=== PATIENT | female | born 1990 | race Caucasian/White ===

== ENCOUNTER 2018-06-30 19:26 | Emergency (ER) | payer SELFPAY ==
[2018-06-30] MEDS ORDERED: NORMAL SALINE 1000 ML 1,000 ML IV ONE ×2 (20:58→21:37)
[2018-06-30] MEDS ORDERED: ONDANSETRON HCL INJ/PF 4 MG/2 ML SDV IV ONE (20:59)
--- NOTE | 2018-06-30 21:06 | ER Document Report ---
ED General - General Chief Complaint: Nausea/Vomiting Stated Complaint: /VOMITTING Time Seen by Provider: 06/30/18 20:58 Notes: Patient is a 27-year-old female who states she is 20 weeks . Patient states she has had continuous vomiting for the last 3 days. Patient states she does have promethazine at home for her vomiting that her [facility] gave her. States she did take that today which has not helped. Patient is denying any fever or diarrhea. Patient is denying any vaginal bleeding or discharge. Patient is admitting to minor suprapubic tenderness and "mild intermittent cramping" but no lower back pain. Past medical history: None Medications: Allergies: None - Related Data Allergies/Adverse Reactions: No Known Allergies Allergy (Unverified 06/30/18 19:45) Past Medical History - General Information source: Patient - Social History Smoking Status: Never Smoker Family History: Reviewed & Not Pertinent Review of Systems - Review of Systems Constitutional: No symptoms reported EENT: No symptoms reported Cardiovascular: No symptoms reported Respiratory: No symptoms reported Gastrointestinal: See HPI Genitourinary: See HPI Female Genitourinary: See HPI Musculoskeletal: No symptoms reported Skin: No symptoms reported Hematologic/Lymphatic: No symptoms reported Neurological/Psychological: No symptoms reported Physical Exam - Vital signs Vitals: Temp Pulse Resp BP Pulse Ox 98.6 F 105 H 18 113/72 100 06/30/18 20:16 06/30/18 20:16 06/30/18 20:16 06/30/18 20:16 06/30/18 20:16 - Notes Notes: GENERAL: Alert, interacts well. No acute distress. HEAD: Normocephalic, atraumatic. EYES: Pupils equal, round, and reactive to light. Extraocular movements intact. ENT: Oral mucosa moist, tongue midline. NECK: Full range of motion. Supple. Trachea midline. LUNGS: Clear to auscultation bilaterally, no wheezes, rales, or rhonchi. No respiratory distress. HEART: Regular rate and rhythm. No murmur ABDOMEN: Obviously gravid soft, non-tender. Non-distended. Bowel sounds present in all 4 quadrants. Minor suprapubic tenderness upon deep palpation. EXTREMITIES: Moves all 4 extremities spontaneously. No edema, normal radial and dorsalis pedis pulses bilaterally. No cyanosis. BACK: no cervical, thoracic, lumbar midline tenderness. No saddle anesthesia, normal distal neurovascular exam. No CVA tenderness bilaterally NEUROLOGICAL: Alert and oriented x3. Normal speech. cranial nerves II through XII grossly intact PSYCH: Normal affect, normal mood. SKIN: Warm, dry, normal turgor. No rashes or lesions noted. Course - Re-evaluation Re-evalutation: 06/30/18 23:03 Patient's urine does show a specific gravity of 1.032 with positive ketones. She was treated with 2 L of normal saline solution in the emergency room. Her urine ultrasounds 59 RBCs with moderate high urine blood. Patient states the suprapubic pain is now gone but continues to have very mild intermittent abdominal cramping. Patient has not vomited and states she is no longer nauseated has been able to p.o. ice chips. 07/01/18 01:11 Patient's labs do show leukocytosis of 12.2 likely due to her vomiting. Patient's hemoglobin hematocrit are at 11.9 and 34.7 respectively. Patient's sodium is 135.9 she was treated with normal saline solution in the emergency room. Her ultrasound does show signs of placenta previa. Discussed this at length with patient need to partake in pelvic rest and follow-up with [facility] within 24-48 hours. Patient voices understanding, is non-hypotensive, non- tachycardic, stable for discharge. 07/01/18 01:14 Discussed use of Unisom and vitamin B6 for continued nausea with patient at length. Patient voices understanding. Patient continues without any other episodes of vomiting in the emergency room - Vital Signs Vital signs: Temp Pulse Resp BP Pulse Ox 98.6 F 89 18 114/62 100 06/30/18 20:16 06/30/18 23:05 06/30/18 20:16 06/30/18 23:05 06/30/18 23:05 - Laboratory Result Diagrams: 06/30/18 23:30 06/30/18 23:30 Laboratory results interpreted by me: 06/30/18 06/30/18 06/30/18 21:06 23:30 23:30 WBC 12.2 H Hgb 11.9 L Hct 34.7 L Absolute Neutrophils 9.1 H Sodium 135.9 L Creatinine 0.45 L Urine Protein 100 H Urine Ketones 80 H Urine Blood MODERATE H Urine Bilirubin SMALL H Urine Urobilinogen 4.0 H Urine Ascorbic Acid 40 H Discharge - Discharge Clinical Impression: Dehydration during , Nausea/vomiting in Placenta previa Qualifiers: Trimester: second trimester Qualified Code(s): O44.02 - Complete placenta previa NOS or without hemorrhage, second trimester Condition: Stable Disposition: HOME, SELF-CARE Instructions: Intravenous (IV) Fluids ([facility]), Vomiting ([facility]) Additional Instructions: As we discussed you have been seen and treated in the emergency department for your nausea, vomiting and dehydration. Your labs show no sign of systemic bleeding at this time. Your ultrasound did show something called placenta previa. I would like you to partake in pelvic rest until you follow-up with [facility] in 24-48 hours. Pelvic rest means absolutely nothing goes into the vaginal canal. Please do not place any tampons, fingers, toys, penises into her vaginal canal until you are cleared by [facility]. Please stay well-hydrated and return to the emergency room for any other concerning symptom Referrals: LISA WAITE MD [ACTIVE STAFF] - Follow up as needed
[2018-06-30 21:24] LABS: APPEARANCE,URINE SLIGHTLY-CLOUDY; BILIRUBIN,URINE SMALL (NEGATIVE); COLOR,URINE AMBER; GLUCOSE, URINE NEGATIVE (NEGATIVE); KETONES,URINE 80 mg/dL (NEGATIVE); LEUKOCYTE ESTERASE,URINE NEGATIVE (NEGATIVE); NITRITE,URINE NEGATIVE (NEGATIVE); PROTEIN,URINE 100 mg/dL (NEGATIVE); URINE SPECIFIC GRAVITY 1.032
[2018-06-30 23:08] VITALS: BP 114/62
[2018-06-30 23:45] LABS: ABSOLUTE BASOPHILS # (AUTO) 0.1 10^3/uL (0.0-0.2); ABSOLUTE LYMPHOCYTES (AUTO) 2.2 10^3/uL (0.5-4.7); ABSOLUTE MONOCYTES (AUTO) 0.8 10^3/uL (0.1-1.4); ABSOLUTE NEUT (AUTO) 9.1 10^3/uL (1.7-8.2); BASOPHILS % (AUTO) 0.5 % (0-2); EOSINOPHILS % (AUTO) 0.4 % (0-6); HEMATOCRIT 34.7 % (36.0-47.0); HEMOGLOBIN 11.9 g/dL (12.0-15.5); LYMPHOCYTES % (AUTO) 18.2 % (13-45); MEAN CORPUSCULAR HEMOGLOBIN 29.9 pg (27.0-33.4); MEAN CORPUSCULAR HGB CONC 34.4 g/dL (32.0-36.0); MEAN CORPUSCULAR VOLUME 87 fl (80-97); MONOCYTES % (AUTO) 6.4 % (3-13); PLATELET COUNT 252 10^3/uL (150-450); RED BLOOD COUNT 3.99 10^6/uL (3.72-5.28); RED CELL DISTRIBUTION WIDTH 13.8 % (11.5-14.0); SEGMENTED NEUTROPHILS % (AUTO) 74.5 % (42-78); TOTAL CELLS COUNTED % (AUTO) 100 %; WHITE BLOOD COUNT 12.2 10^3/uL (4.0-10.5)
[2018-06-30 23:52] LABS: ANION GAP 6 (5-19); BLOOD UREA NITROGEN 9 mg/dL (7-20); CALCIUM 8.5 mg/dL (8.4-10.2); CARBON DIOXIDE 24 mmol/L (22-30); CHLORIDE 106 mmol/L (98-107); GLUCOSE 81 mg/dL (75-110); POTASSIUM 4.2 mmol/L (3.6-5.0); SODIUM 135.9 mmol/L (137-145)
--- NOTE | 2018-07-01 00:54 | RADIOLOGY REPORT (SQ) ---
EXAM DESCRIPTION: US LIMITED COMPLETED DATE/TME: 06/30/2018 23:27 CLINICAL HISTORY: 27 years Female, pregnany, bleeding Clinical GA 19w6d Comparison: None. TECHNIQUE/LIMITATION: Targeted OB sonogram for requested parameters only. FINDINGS: EGA is 19w6d with ANIL of 11/18/18 EFW is 321g Cardiac activity: 157-bpm. NORRIS: 5.5-cm Placenta: Anterior. Placenta previa (assymetric) with posterior edge of the placenta 1.6 cm posterior to the internal cervical os. No evidence of abruption. Cervical length: 4.2-cm. Closed appearance. IMPRESSION: 1. Placenta previa. If asymptomatic, follow-up recommended at 32 weeks. Else, earlier follow-up if symptomatic. 2. Targeted OB sonogram for requested parameters.
== END 2018-07-01 00:45 | disposition home or self-care (01) ==
LOC: ER 19:26
DX: O21.9 Vomiting of pregnancy, unspecified (principal); O44.02 Complete placenta previa NOS or without hemorrhage, second trimester; E86.0 Dehydration; Z3A.20 20 weeks gestation of pregnancy
CPT/HCPCS: 99283; 96361; 96374; 36415; 85025; 80048; 81001; 76815; J2405; J7030

== ENCOUNTER 2018-11-17 05:54 | Inpatient (IN) | payer MEDICAID ==
[2018-11-16 10:51] LABS: HEMATOCRIT 27.3 % (36.0-47.0); HEMOGLOBIN 9.1 g/dL (12.0-15.5); MEAN CORPUSCULAR HEMOGLOBIN 26.1 pg (27.0-33.4); MEAN CORPUSCULAR HGB CONC 33.5 g/dL (32.0-36.0); MEAN CORPUSCULAR VOLUME 78 fl (80-97); PLATELET COUNT 247 10^3/uL (150-450); RED CELL DISTRIBUTION WIDTH 15.8 % (11.5-14.0); WHITE BLOOD COUNT 9.6 10^3/uL (4.0-10.5)
[2018-11-16 10:56] LABS: APPEARANCE,URINE CLOUDY; BILIRUBIN,URINE NEGATIVE (NEGATIVE); COLOR,URINE YELLOW; GLUCOSE, URINE NEGATIVE (NEGATIVE); KETONES,URINE NEGATIVE (NEGATIVE); LEUKOCYTE ESTERASE,URINE SMALL (NEGATIVE); NITRITE,URINE NEGATIVE (NEGATIVE); PROTEIN,URINE NEGATIVE (NEGATIVE); URINE SPECIFIC GRAVITY 1.006; UROBILINOGEN,URINE NEGATIVE mg/dL (<2.0)
[2018-11-16 11:14] LABS: URINE AMPHETAMINES SCREEN NEGATIVE; URINE BARBITURATES SCREEN NEGATIVE; URINE BENZODIAZEPINES SCREEN NEGATIVE; URINE COCAINE SCREEN NEGATIVE; URINE MARIJUANA (THC) SCREEN NEGATIVE; URINE METHADONE SCREEN NEGATIVE; URINE PHENCYCLIDINE SCREEN NEGATIVE
[2018-11-16 11:37] LABS: ABSOLUTE LYMPHOCYTES# (MANUAL) 1.8 10^3/uL (0.5-4.7); ABSOLUTE MONOCYTES # (MANUAL) 0.1 10^3/uL (0.1-1.4); ABSOLUTE NEUTROPHILS# (MANUAL) 7.6 10^3/uL (1.7-8.2); BAND NEUTROPHILS % (MANUAL) 3 % (3-5); BASOPHILS % (MANUAL) 0 % (0-2); EOSINOPHILS % (MANUAL) 1 % (0-6); LYMPHOCYTES % (MANUAL) 19 % (13-45); MONOCYTES % (MANUAL) 1 % (3-13); SEGMENTED NEUTROPHILS % (MAN) 76 % (42-78); TOTAL CELLS COUNTED 100
[2018-11-16 11:39] LABS: ANISOCYTOSIS SLIGHT
[2018-11-16 11:40] LABS: HYPOCHROMASIA 1+; PLATELET COMMENT ADEQUATE
[~2018-11-17 05:54] MED LIST: CEFAZOLIN 1 GM/D5W RTU 1 GM/50 ML RTUPB IV PRN; LACTATED RINGERS 1000 ML IV PRN; LIDOCAINE 0.5% INJ-PF (5 MG/ML) 50 ML SDV SUBCUT PRN; RINGERS SOLUTION,LACTATED 1,500 ML IV PRN
[2018-11-17] MEDS ORDERED: PROPOFOL INJ 200 MG/20 ML VIAL IV ONE (08:28)
[2018-11-17] MEDS ORDERED: CITRIC ACID/SODIUM CITRATE ORAL SOLN 15 ML UDCUP ONE (08:28)
[2018-11-17] MEDS ORDERED: MIDAZOLAM 2 MG/2 ML INJ ONE (08:29)
[2018-11-17] MEDS ORDERED: OXYTOCIN/NORMAL SALINE 20 UNIT/1,000 ML RTUINJ ONE ×2 (08:29→11:09)
[2018-11-17] MEDS ORDERED: EPHEDRINE SULFATE INJ 50 MG/1 ML AMPULE ONE (08:29)
[2018-11-17] MEDS ORDERED: FENTANYL CITRATE INJ/PF 100 MCG/2 ML AMPUL ONE ×2 (08:29→11:08)
[2018-11-17] MEDS ORDERED: PROMETHAZINE HCL INJ 25 MG/1 ML VIAL IV PRN ×3 (09:19→09:28)
[2018-11-17] MEDS ORDERED: DIPHENHYDRAMINE HCL 50 MG/ML VIAL IV PRN (09:19)
[2018-11-17] MEDS ORDERED: MEPERIDINE HCL/PF INJ 25 MG/1 ML DISP.SYRIN IV PRN (09:19)
[2018-11-17] MEDS ORDERED: FENTANYL CITRATE INJ/PF 100 MCG/2 ML AMPUL IV PRN ×2 (09:19)
[2018-11-17] MEDS ORDERED: MORPHINE SULFATE 10 MG/ML INJ IV PRN ×2 (09:19→09:28)
[2018-11-17] MEDS ORDERED: MEASLES,MUMPS&RUBELLA VACC/PF 0.5 ML VIAL SUBCUT PRN (09:28)
[2018-11-17] MEDS ORDERED: OXYTOCIN/NORMAL SALINE 20 UNIT/1,000 ML RTUINJ IV PRN (09:28)
[2018-11-17] MEDS ORDERED: DIPH/PERTUSS(ACELL)/TETANUS VAC/PF 0.5 ML SYR (>=10YO) IM PRN (09:28)
[2018-11-17] MEDS ORDERED: OXYCODONE-ACETAMINOPHEN 5-325 MG TABLET PO PRN (09:28)
[2018-11-17] MEDS ORDERED: RINGERS SOLUTION,LACTATED 1,000 ML IV PRN (09:28)
[2018-11-17] MEDS ORDERED: ACETAMINOPHEN 1,000 MG/100 ML RTUPB IV PRN (09:28)
[2018-11-17] MEDS ORDERED: ACETAMINOPHEN 325 MG TABLET PO PRN (09:28)
[2018-11-17] MEDS: FENTANYL CITRATE INJ/PF 100 MCG/2 ML AMPUL IV PRN ×2 (11:08→11:20)
--- NOTE | 2018-11-17 11:30 | OPERATIVE REPORT E ---
Operative Report NAME: ALONSO VILA : 1990 AGE: 28Y DATE OF SURGERY: 11/17/2018 ROOM: 227 PREOPERATIVE DIAGNOSES: 1. INTRAUTERINE (IUP) AT 39 WEEKS AND 1 DAY. 2. PREVIOUS SECTION, DESIRES REPEAT. POSTOPERATIVE DIAGNOSES: 1. INTRAUTERINE (IUP) AT 39 WEEKS AND 1 DAY. 2. PREVIOUS SECTION, DESIRES REPEAT. SURGEON: DEL NAPIER M.D. PULMONOLOGIST INTENSIVIST: Jenniefr Christianson, [employer] [employer] pharmacy intake technician. ANESTHESIOLOGIST: Diaan Kline M.D. ANESTHESIA: Spinal. FINDINGS: Male , cephalic presentation, with Apgars of 9 and 9. ESTIMATED BLOOD LOSS: 750 mL. COMPLICATIONS: None. PATHOLOGY: None. PROCEDURE: A repeat low transverse hysterotomy section. PROCEDURE IN DETAIL: The patient was taken to the operating room, prepared and draped in a normal sterile fashion in the supine position with a leftward tilt. A transverse skin incision was made with a scalpel following the patient's previous scar. This was carried through to the underlying layer of fascia with the same scalpel. The fascia was incised in the midline and extended laterally with Mayos. The fascia was dissected sharply from the rectus muscle using the Bovie and the rectus muscle was divided sharply, again using the Bovie. The peritoneal cavity was entered bluntly with good visualization of the bladder and the uterus. The bladder blade was inserted. The rectus muscles were slightly cut to aid with delivery. The hysterotomy was then nicked with a scalpel and extended laterally with surgeon finger fracture. The infant was then delivered atraumatically. The nose and mouth were suctioned with a suction bulb and the cord was clamped and cut. The was handed off to waiting laboratory scientist. Cord blood was collected. The placenta was removed manually. The uterus was exteriorized and cleared of clots and debris. Hysterotomy was closed with 0 Monocryl in a running locked fashion. A second layer of the same suture was used to imbricate to ensure hemostasis. The uterus was returned to the abdomen. The peritoneal cavity was cleared of clots and debris. The rectus muscle and peritoneum were reapproximated with a mattress suture of 2-0 chromic. The fascia was closed with 0 Vicryl. The subcutaneous layer was closed with plain catgut and the skin was closed with 4-0 Vicryl. The patient tolerated the procedure well. Sponge, lap, and needle counts were correct x2, and the patient was taken to recovery in stable condition. DICTATING PHYSICIAN: DEL NAPIER M.D. [id number] PHY#: [id number] ID: [id number] JOB#: [id number] ACCT: [id number] cc:DEL NAPIER M.D. >
[2018-11-17] MEDS: PRENATAL VITAMIN W DHA CAPSULE PO SCH (12:35)
[2018-11-17] MEDS: DOCUSATE SODIUM 100 MG CAPSULE PO SCH ×2 (12:35→17:52)
[2018-11-17] MEDS: OXYCODONE-ACETAMINOPHEN 5-325 MG TABLET PO PRN (16:06)
[2018-11-17] MEDS: KETOROLAC TROMETHAMINE INJ/PF 30 MG/1 ML SDV IV SCH (17:52)
[2018-11-17] MEDS ORDERED: PHENYLEPHRINE HCL INJ/PF 10 MG/1 ML SDV ONE (21:18)
[2018-11-17] MEDS ORDERED: KETOROLAC TROMETHAMINE 60 MG/2 ML SDV ONE (21:18)
[2018-11-18] MEDS: OXYCODONE-ACETAMINOPHEN 5-325 MG TABLET PO PRN (00:25)
[2018-11-18] MEDS: KETOROLAC TROMETHAMINE INJ/PF 30 MG/1 ML SDV IV SCH ×2 (03:24→09:24)
[2018-11-18 07:40] LABS: HEMATOCRIT 25.1 % (36.0-47.0); HEMOGLOBIN 8.2 g/dL (12.0-15.5); MEAN CORPUSCULAR HEMOGLOBIN 25.1 pg (27.0-33.4); MEAN CORPUSCULAR HGB CONC 32.7 g/dL (32.0-36.0); MEAN CORPUSCULAR VOLUME 77 fl (80-97); PLATELET COUNT 230 10^3/uL (150-450); RED BLOOD COUNT 3.26 10^6/uL (3.72-5.28); RED CELL DISTRIBUTION WIDTH 15.7 % (11.5-14.0); WHITE BLOOD COUNT 12.7 10^3/uL (4.0-10.5)
[2018-11-18] MEDS ORDERED: MAG HYDROX/AL HYDROX/SIMETH SUSP 30 ML UDCUP ONE (09:14)
[2018-11-18] MEDS: SIMETHICONE 80 MG TAB.CHEW PO PRN ×3 (09:23→23:22)
[2018-11-18] MEDS: DOCUSATE SODIUM 100 MG CAPSULE PO SCH ×2 (09:23→17:43)
[2018-11-18] MEDS: PRENATAL VITAMIN W DHA CAPSULE PO SCH (09:23)
[2018-11-18] MEDS ORDERED: MAG HYDROX/AL HYDROX/SIMETH SUSP 30 ML UDCUP PO PRN (09:35)
[2018-11-18] MEDS ORDERED: FAMOTIDINE 20 MG TABLET ONE (10:53)
[2018-11-18] MEDS ORDERED: IBUPROFEN 800 MG TABLET ONE (10:56)
[2018-11-18] MEDS: FAMOTIDINE 20 MG TABLET PO SCH ×2 (10:57→23:22)
[2018-11-18] MEDS: IBUPROFEN 800 MG TABLET PO SCH ×3 (10:59→23:21)
--- NOTE | 2018-11-18 13:50 | PDOC PROGRESS REPORT ---
Subjective-OB Progress Note for:: 11/18/18 Subjective: Pt doing well, bonding with baby. She denies heavy bleeding, reports regular diet without flatus at this point. No difficulty voiding. Physical Exam (OB) Vital Signs: Temp Pulse Resp BP Pulse Ox 98.5 F 101 H 16 105/61 99 11/18/18 11:17 11/18/18 11:17 11/18/18 11:17 11/18/18 11:17 11/18/18 11:17 Intake & Output 11/17/18 11/18/18 11/19/18 06:59 06:59 06:59 Intake Total 2425 500 Output Total 3754 Balance -1329 500 Weight 92.08 kg - PIH/Pre-Eclampsia DTR's: 2 + Clonus: Negative Headache: Absent Epigastric Pain: No Visual Changes: No - Dressing Removed: No - opsite dressing in place Incision: Dressing Closure Type: optsite - Lochia Lochia Amount: Scant < 10 ml Lochia Color: Rubra/Red - Abdomen Description: Tender, Soft Hernia Present: No Fundal Description: Firm, Midline Fundal Height: u/u - u/2 Objective-Diagnostic Laboratory: 11/18/18 07:18 11/18/18 07:18 WBC 12.7 H RBC 3.26 L Hgb 8.2 L Hct 25.1 L MCV 77 L MCH 25.1 L MCHC 32.7 RDW 15.7 H Plt Count 230 Assessment and Plan(PN) - Assessment and Plan (1) Status post repeat low transverse section Is this a current diagnosis for this admission?: Yes - Time Spent with Patient Time with patient: Less than 15 minutes Medications reviewed and adjusted accordingly: Yes - Disposition Anticipated Discharge: Home Within: within 24 hours
[2018-11-19] MEDS: IBUPROFEN 800 MG TABLET PO SCH ×2 (06:36→12:19)
[2018-11-19] MEDS: SIMETHICONE 80 MG TAB.CHEW PO PRN (06:37)
[2018-11-19] MEDS: FAMOTIDINE 20 MG TABLET PO SCH (09:17)
[2018-11-19] MEDS: PRENATAL VITAMIN W DHA CAPSULE PO SCH (09:17)
[2018-11-19] MEDS: DOCUSATE SODIUM 100 MG CAPSULE PO SCH (09:17)
--- NOTE | 2018-11-19 09:23 | PDOC DISCHARGE SUMMARY ---
Final Diagnosis Discharge Date: 11/19/18 - Final Diagnosis (1) Status post repeat low transverse section Is this a current diagnosis for this admission?: Yes Discharge Data - Discharge Medication Home Medications: Doxylamine Succinate/Vit B6 [Diclegis Dr 10-10 mg Tablet] 1 each PO PRN PRN 11/16/18 Metformin HCl [Metformin HCl ER] 500 mg PO BID 11/16/18 No122/Iron/Folic Acid [ Multi Tablet] 1 each PO DAILY 11/16/18 Ranitidine HCl [Zantac 75 mg Tablet] 75 mg PO DAILY 11/16/18 Reason(s) for Admission: Ceasarean Section-Repeat Procedures: None Intrapartum Procedure(s): : Low Cervical, Transverse - Diagnosis Test Laboratory: Temp Pulse Resp BP Pulse Ox 97.9 F 92 18 107/62 97 11/19/18 03:58 11/19/18 03:58 11/19/18 03:58 11/19/18 03:58 11/19/18 03:58 11/16/18 11/16/18 11/18/18 10:10 10:13 07:18 RBC 3.50 L 3.26 L Hgb 9.1 L 8.2 L Hct 27.3 L 25.1 L Urine Opiates Screen NEGATIVE - Discharge information/Instructions Discharge Activity: Balance Activity w/Rest, No Lifting Over 10 Pounds, No Lifting/Push/Pulling, Pelvic Rest Discharge Diet: Regular Disposition: HOME, SELF-CARE Follow up with: [facility] in: 1, Weeks
[2018-11-19 11:47] VITALS: BP 110/70
[2018-11-22] MEDS ORDERED: IBUPROFEN 800 MG TABLET PO SCH (18:00)
== END 2018-11-19 13:50 | disposition home or self-care (01) | DRG 788 ==
LOC: 2S 05:54
PROVIDERS: ADMIT Obstetrics & Gynecology; ATTEND Obstetrics & Gynecology
PROC: 10D00Z1 Extraction of Products of Conception, Low, Open Approach (ICD-10-PCS; principal; 2018-11-17 08:30)
PROC: 3E0234Z Introduction of Serum, Toxoid and Vaccine into Muscle, Percutaneous Approach (ICD-10-PCS; 2018-11-19)
DX: O34.211 Maternal care for low transverse scar from previous cesarean delivery (principal); N85.8 Other specified noninflammatory disorders of uterus; Z3A.39 39 weeks gestation of pregnancy; O24.425 Gestational diabetes mellitus in childbirth, controlled by oral hypoglycemic drugs; O99.02 Anemia complicating childbirth; D64.9 Anemia, unspecified; Z37.0 Single live birth; Z23 Encounter for immunization
CPT/HCPCS: 1961; 36415; 80307; 81001; 82962; 85025; 85027; 86850; 86900; 86901; 90715; 94799; J1885; J2250; J2270; J2370; J2590; J2704; J3010; J3490; J7120

== ENCOUNTER 2020-04-01 00:32 | Emergency (ER) | payer OTHER, MEDICAID ==
[2020-04-01 01:01] VITALS: BP 127/64
[2020-04-01] MEDS ORDERED: KETOROLAC TROMETHAMINE 60 MG/2 ML SDV IM ONE (02:25)
[2020-04-01] MEDS ORDERED: AMOXICILLIN TR/POT CLAVULANATE 875-125 MG TAB PO ONE (02:27)
--- NOTE | 2020-04-01 02:28 | ER Document Report ---
ED ENT - General Chief Complaint: Ear Pain Stated Complaint: SEVERE EAR PAIN Primary Care Provider: CIARA BRAGA APRN [NO LOCAL MD] - Follow up as needed TRAVEL OUTSIDE OF THE [place] IN LAST 30 DAYS: No - HPI Notes: Patient is a 29-year-old female who presents with left ear pain. Patient states symptoms began today and have been worsening. She denies any fevers or chills. No sore throat. No nasal congestion. No neck pain or pain behind the ear. She has tried rtyg-rce-haxaicu eardrops without relief. Patient denies swimming. She states that her sister did give her a haircut and wash her hair and she is unsure if maybe that could have gotten some water in her ear. No chest pain or shortness of breath. Patient states she made an appointment with her family doctor for tomorrow but the pain worsened so she could not wait that long. She has taken Tylenol without relief. - Related Data Allergies/Adverse Reactions: No Known Allergies Allergy (Verified 11/16/18 11:56) Past Medical History - General Information source: Patient - Social History Smoking Status: Never Smoker Family History: Reviewed & Not Pertinent Endocrine Medical History: Denies: Hx Hyperthyroidism, Hx Hypothyroidism Renal/ Medical History: Denies: Hx Peritoneal Dialysis GI Medical History: Reports: Hx Gastroesophageal Reflux Disease. Denies: Hx Hiatal Hernia, Hx Ulcer Psychiatric Medical History: Reports: Hx Depression Denies: Hx Bipolar Disorder, Hx Post Traumatic Stress Disorder, Hx Schizophrenia Review of Systems - Review of Systems Notes: CONSTITUTIONAL: No fever, fatigue or weight loss. SKIN: No rash. HENT: No congestion or sore throat. Positive left ear pain. EYES: No recent vision problems or eye pain. ENDOCRINE: No polyuria or polydipsia. CARDIOVASCULAR: No chest pain or edema. RESPIRATORY: No cough, shortness of breath, congestion, or wheezing. GASTROINTESTINAL: No abdominal pain, nausea, vomiting, diarrhea. GENITOURINARY: No dysuria. MUSCULOSKELETAL: No joint pain or swelling. LYMPHATIC: No swollen glands. NEUROLOGIC: No seizures. No headache, focal weakness or sensory changes. HEMATOLOGIC: No unusual bruising or bleeding. PSYCHIATRIC: No depression or anxiety. Physical Exam - Vital signs Vitals: Temp Pulse Resp BP Pulse Ox 98.3 F 84 15 127/64 H 99 04/01/20 00:59 04/01/20 00:59 04/01/20 00:59 04/01/20 00:59 04/01/20 00:59 - General General appearance: Appears well Notes: VITAL SIGNS: Within normal limits. GENERAL: No acute distress, non-toxic appearance. HEAD: Normal with no signs of head trauma. EYES: EOMI, conjunctiva normal, no discharge. EARS: Hearing grossly intact. Erythema with bulging ear drum on the left. No evidence for mastoiditis. No pain at the mastoid. NOSE: Normal. THROAT: Oropharynx is normal. No exudates or erythema. NECK: Normal range of motion, no tenderness, supple, no lymphadenopathy, No adenopathy, no JVD. CHEST: Non labored respirations, bilateral chest rise CARDIAC: Regular rate ABDOMEN: Normal and soft LYMPATHTIC: No lymphadenopathy noted. MUSCULOSKELETAL: Good range of motion of all major joints.. NEUROLOGICAL: Alert and oriented x 3. No focal sensory or strength deficits. Speech normal. Follows commands appropriately. PSYCHIATRIC: Normal Affect, judgement and mood. SKIN: Normal appearance with no rashes or lesions. Course - Re-evaluation Re-evalutation: 04/01/20 02:39 Patient has evidence of a left otitis media. I do not suspect mastoiditis. Patient's vitals are within normal limits. She states that she is not as she has an IUD. Patient was given Toradol and Augmentin. She was written a prescription for Augmentin. She was instructed that she can take Tylenol and ibuprofen for the pain. Patient has appointment with her family doctor tomorrow. She was given strict return precautions getting fever, headache, neck pain, any other concerning symptoms and she verbalized understanding. - Vital Signs Vital signs: Temp Pulse Resp BP Pulse Ox 98.3 F 84 15 127/64 H 99 04/01/20 00:59 04/01/20 00:59 04/01/20 00:59 04/01/20 00:59 04/01/20 00:59 Discharge - Discharge Clinical Impression: Left otitis media Qualifiers: Otitis media type: unspecified Qualified Code(s): H66.92 - Otitis media, unspec ified, left ear Condition: Stable Disposition: HOME, SELF-CARE Instructions: Otitis Media ([facility]) Additional Instructions: Please take your antibiotics as prescribed. Please follow-up with your PCP to ensure resolution. Return to the ER for any fevers, head pain, neck pain, any other concerning symptoms. Prescriptions: Amoxicillin/Potassium Clav [Augmentin 875-125 Tablet] 1 tab PO Q12 7 Days #14 tablet Referrals: CIARA BRAGA APRN [NO LOCAL MD] - Follow up as needed
== END 2020-04-01 03:10 | disposition home or self-care (01) ==
LOC: ER 00:32
DX: H66.92 Otitis media, unspecified, left ear (principal); H92.02 Otalgia, left ear; Z79.899 Other long term (current) drug therapy
CPT/HCPCS: 99284; 96372; J1885; J3490